=== PATIENT | male | born 1990 | race Caucasian/White ===

== ENCOUNTER 2022-09-15 11:09 | Outpatient (CLI) | payer OTHER, SELFPAY ==
--- NOTE | 2022-09-15 11:15 | CRLHL7_ITS ---
For Patients: As a result of the Century Cures Act, medical imaging exams and procedure reports are released immediately into your electronic medical record. You may view this report before your referring provider. If you have questions, please contact your health care provider. Technique: Double-contrast esophagram performed after the uneventful administration of effervescent crystals and thick barium followed by thin barium. Fluoroscopy time 1 minute 41 seconds. Indication: Dysphagia Comparison: None. Findings: Esophagus appears normal. No stricture or ulcer. No obstruction within the esophagus. No significant hernia or reflux. Normal motility. 4.3 cm mass within the gastric body. Mild adjacent mucosal irregularity. Impression: 4.3 cm gastric mass. Normal esophagus. Dictated by Mando Aj MD @ 09/15/2022 12:14:10 PM (Electronically Signed)
== END 2022-09-15 11:10 | disposition home or self-care (01) ==
LOC: RAD 11:10
PROVIDERS: PCP Family Medicine; Visit Provider Otolaryngology
DX: R13.10 Dysphagia, unspecified (principal); R22.2 Localized swelling, mass and lump, trunk
CPT/HCPCS: 74221

== ENCOUNTER 2023-01-23 15:20 | Outpatient (CLI) | payer OTHER, SELFPAY | END 2023-01-23 15:21 | disposition home or self-care (01) | LOC: LONREF 15:21 | PROVIDERS: PCP Family Medicine; Visit Provider Family Medicine | DX: Z01.818 Encounter for other preprocedural examination (principal) | CPT/HCPCS: 80048 ==

== ENCOUNTER 2023-02-08 19:18 | Outpatient (CLI) | payer OTHER, SELFPAY ==
--- NOTE | 2023-02-21 13:27 | W.PM.SLEEP ---
Sleep Study Details Details Interpreting Provider: Brandon Date of Sleep Study: 02/08/23 Sleep Study Details: STUDY TYPE:? Home unattended ? BMI:? 37.6 ORDERING PROVIDER:Luis Taylor INDICATION:? Concerns about sleep apnea ? SLEEP SUMMARY:? 513 minutes monitor time RESPIRATORY SUMMARY:? AHI 5.1, supine 5.3, left lateral 3.0 (40 minutes) Low oxygen 90 6.6% of study oxygen recorded at less than 90% (is is not fit with a low oxygen of 90) PERIODIC LIMB MOVEMENTS OF SLEEP:? Not recorded during home study CARDIAC:? Range 48-98, mean 63.5 beats per minute IMPRESSION:? Mild obstructive sleep apnea worse in the supine position RECOMMENDATION: If patient has daytime hypersomnolence treatment options include CPAP, weight loss, dental appliance and/or airway expansion surgery.
== END 2023-02-08 19:19 | disposition home or self-care (01) ==
PROVIDERS: PCP Family Medicine; Visit Provider Otolaryngology
DX: G47.33 Obstructive sleep apnea (adult) (pediatric) (principal)
CPT/HCPCS: 95806

== ENCOUNTER 2024-07-26 10:37 | Day surgery (SDC) | payer OTHER, SELFPAY ==
[2024-07-26] VITALS (14 sets, daily range): BP systolic 127–162; BP diastolic 76–108; PULSE 65–92; RESP 11–16; TEMP 36.3–37.1; O2SAT 93–100; BMI 37.4
[2024-07-26] MEDS: SODIUM CHLORIDE 0.9 % (FLUSH) 10 ML SYRINGE IVF (11:07)
[2024-07-26] MEDS: LACTATED RINGERS 1000 ML 1,000 ML 100 ML IV (11:08)
--- NOTE | 2024-07-26 12:27 | P.ANES_ITS ---
Anesthesia Charges Start Date/Time Anesthesia Start Date: 07/26/24 Anesthesia Start Time: 12:05 Stop Date/Time Anesthesia Stop Date: 07/26/24 Anesthesia Stop Time: 12:50 Coding CPT Codes CPT Codes: ANESTH PROCEDURE ON MOUTH - 88612 ([id number]) QK - SALES OFFICE MANAGER 2-4 CNCRNT ANES PROC, QX - BROOMCORN THRESHER SVC W/ MD MED DIRECTION, P2 - PATIENT W/MILD SYST DISEASE
--- NOTE | 2024-07-26 12:27 | W.ANESCHARGE ---
Anesthesia Charges Start Date/Time Anesthesia Start Date: 07/26/24 Anesthesia Start Time: 12:05 Stop Date/Time Anesthesia Stop Date: 07/26/24 Anesthesia Stop Time: 12:50 Coding CPT Codes CPT Codes: ANESTH PROCEDURE ON MOUTH - 36742 ([id number]) QK - DIRECTOR FRANCHISE SALES 2-4 CNCRNT ANES PROC, QX - SAT ACT INSTRUCTOR SVC W/ MD MED DIRECTION, P2 - PATIENT W/MILD SYST DISEASE
[2024-07-26] MEDS: MEPERIDINE 25 MG/ML INJ 12.5 MG IVP (12:50)
--- NOTE | 2024-07-26 12:51 | P.ANES_ITS ---
Anesthesia Charges Start Date/Time Anesthesia Start Date: 07/26/24 Anesthesia Start Time: 12:05 Stop Date/Time Anesthesia Stop Date: 07/26/24 Anesthesia Stop Time: 12:50 Coding CPT Codes CPT Codes: ANESTH PROCEDURE ON MOUTH - 76748 ([id number]) P2 - PATIENT W/MILD SYST DISEASE, QK - DIESEL LOCOMOTIVE CRANE OPERATOR 2-4 CNCRNT ANES PROC, QX - SPONGE PRESS OPERATOR SVC W/ MD MED DIRECTION
--- NOTE | 2024-07-26 12:51 | W.ANESCHARGE ---
Anesthesia Charges Start Date/Time Anesthesia Start Date: 07/26/24 Anesthesia Start Time: 12:05 Stop Date/Time Anesthesia Stop Date: 07/26/24 Anesthesia Stop Time: 12:50 Coding CPT Codes CPT Codes: ANESTH PROCEDURE ON MOUTH - 43347 ([id number]) P2 - PATIENT W/MILD SYST DISEASE, QK - STORY EDITOR 2-4 CNCRNT ANES PROC, QX - FAMILY RESOURCE MANAGEMENT SPECIALIST SVC W/ MD MED DIRECTION
--- NOTE | 2024-07-26 13:21 | W.PM.ENTPROC ---
Procedure Note Date of procedure: 07/26/24 Procedure: Preop diagnosis chronic tonsillitis, tonsillar hypertrophy bilateral Postoperative diagnosis same Procedure tonsillectomy Under general trach anesthesia patient was prepped and draped in usual fashion. The McIvor mouth gag was inserted the tongue retracted forward. The uvula was markedly elongated in the membranous portion removed with needlepoint cautery. The right and left tonsils removed the combination of needlepoint and bipolar cautery. Any bleeding was controlled with suction cautery. Meticulous hemostasis was achieved. The patient was extubated in the operating room taken recovery in satisfactory condition. Blood loss was less than 10 mL. Surgeon: Benjamin Quiroz MD
[2024-07-26] MEDS: ACETAMINOPHEN 160 MG/5 ML CUP 320 MG PO (13:38)
[2024-07-26] MEDS: IBUPROFEN 100 MG/5 ML SUSP 200 MG PO (13:38)
== END 2024-07-26 14:55 | disposition home or self-care (01) ==
LOC: OR 10:38
PROVIDERS: PCP Family Medicine; Visit Provider Otolaryngology
PROC: (CPT 42826; principal; 2024-07-26 12:00)
DX: J35.01 Chronic tonsillitis (principal)
CPT/HCPCS: 42826; 00170; 88304; A9270; J0330; J1100; J2175; J2250; J2405; J2704; J3010; J7120